=== PATIENT | female | born 1960 | race Caucasian/White ===

== ENCOUNTER 2019-03-20 08:04 | Outpatient (CLI) | payer OTHER ==
--- NOTE | 2019-03-20 08:52 | ULT ---
ULTRASOUND ABDOMEN COMPLETE: 03/20/2019 HISTORY: Epigastric pain and flank pain in a 58-year-old female. FINDINGS: The gallbladder has normal wall thickness and has no evidence of gallstones or sludge. The hepatic e chogenicity is normal. The kidneys have normal echogenicity, and there is no hydronephrosis. There is no splenomegaly. There is no abdominal aortic aneurysm. No free fluid is identified. The inferi or vena cava is visualized. The pancreas is visualized, although ultrasound is relatively insensitiv e for pancreatic pathology compared to CT and MRI. There is no biliary dilation. The common duct ca liber is 3 mm. IMPRESSION: Normal. jn [] POS: [facility]
== END 2019-03-20 08:05 | disposition home or self-care (01) ==
LOC: BICULT 08:04
PROVIDERS: ATTEND Family Medicine
DX: R10.13 Epigastric pain (principal)
CPT/HCPCS: 76700

== ENCOUNTER 2019-04-24 08:04 | Outpatient (CLI) | payer OTHER ==
--- NOTE | 2019-04-24 14:31 | NM ---
HEPATOBILIARY SCAN: HISTORY:Right upper quadrant pain, no gallstones and ultrasound of 03/20/2019 RADIOPHARMACEUTICAL: 5.3 mCi Technetium 99m Mebrofenin injected intravenously FINDINGS: There is normal tracer extraction by the liver with normal excretion into the biliary tracts and smal l bowel loops and normal filling of the gallbladder. The calculated gallbladder ejection fraction following an oral fatty meal measures 89%. IMPRESSION:Normal exam.
== END 2019-04-24 08:05 | disposition home or self-care (01) ==
LOC: NM 08:04
PROVIDERS: ATTEND Family Medicine
DX: Z00.00 Encounter for general adult medical examination without abnormal findings (principal)
CPT/HCPCS: 78227; A9537

== ENCOUNTER 2019-05-12 11:04 | Outpatient (CLI) | payer OTHER ==
--- NOTE | 2019-05-12 11:45 | CT ---
CT Abdomen Pelvis W Con: 05/12/2019 12:00 AM CLINICAL INFORMATION: Epigastric pain for 6 to 7 months COMPARISON: None. TECHNIQUE: Multiple contiguous axial images were obtained and a CT of the abdomen and pelvis with IV contrast. C oronal reformats were performed. FINDINGS: Lower Chest: within normal limits. Abdomen: Liver: within normal limits. Bile Ducts: Normal caliber. Gallbladder: No calcified gallstones. Normal caliber wall. Pancreas: within normal limits. Spleen: within normal limits. Adrenals: within normal limits. Kidneys: within normal limits. Pelvis: Reproductive Organs: Status post hysterectomy. Ureters: within normal limits. Bladder: within normal limits. Peritoneum: No ascites or free air, no fluid collection. Bowel: Normal caliber. Normal appendix. Mesentery and Retroperitoneum: No enlarged mesenteric or retroperitoneal lymph nodes. Vessels: Normal. Abdominal Wall: within normal limits. Bones: Postsurgical changes in the lumbar spine. IMPRESSION: No evidence of acute intraabdominal or pelvic abnormality.
== END 2019-05-12 11:05 | disposition home or self-care (01) ==
LOC: BICCT 11:04
PROVIDERS: ATTEND Family Medicine
DX: R10.13 Epigastric pain (principal)
CPT/HCPCS: 74177